=== PATIENT | male | born 1965 | race Caucasian/White ===

== ENCOUNTER 2024-03-19 14:24 | Emergency (ER) | payer OTHER ==
[~2024-03-19] VITALS: Ht 177.8 cm; Wt 77.1 kg
[2024-03-19 14:30] VITALS: BP 118/92; PULSE 104; RESP 16; TEMP 97.7; O2SAT 97
--- NOTE | 2024-03-19 14:33 | NUR ---
Patient BIBA to bed 5.
--- NOTE | 2024-03-19 14:49 | NUR ---
58 y/o male biba from streets with c/o abdominal pain x today. Patient reports abdominal pain with vomiting. Patient reports nausea and vomiting. Patient's pain is in the epigastric region. Patient reports takin Tums with minimal relief. Patient denies any sick contacts. Patient reports eating [employer] then symptoms started. Last BM 03/18/24. Patient has a 18G IV to Left Forearm and Fluids running started by [facility]. Patient was also given 4mg of Zofran IV Push. Call light is within reach. Medical History: DM, HTN NKDA
--- NOTE | 2024-03-19 15:14 | NUR ---
Lab at bedside.
[2024-03-19] MEDS: KETOROLAC 30 MG/ML VIAL IVP ONE (15:22)
[2024-03-19 15:26] LABS: BASOPHILS % (AUTO) 0.2 % (0.0-2.0); EOSINOPHILS % (AUTO) 0.2 % (0.0-4.0); HEMATOCRIT 37.1 % (36-52); HEMOGLOBIN 12.5 g/dL (12.0-18.0); LYMPHOCYTES # (AUTO) 0.6 K/uL (2.0-11.5); LYMPHOCYTES % (AUTO) 5.4 % (20.5-51.1); MEAN CORPUSCULAR HEMOGLOBIN 31 pg (27-31); MEAN CORPUSCULAR HGB CONC 34 g/dL (33-37); MEAN CORPUSCULAR VOLUME 90.7 fL (80-94); MONOCYTES # (AUTO) 0.7 K/uL (0.8-1.0); MONOCYTES % (AUTO) 6.5 % (1.7-9.3); NEUTROPHILS # (AUTO) 9.7 K/uL (1.8-7.7); NEUTROPHILS % (AUTO) 87.7 % (42.2-75.2); PLATELET COUNT (AUTO) 213 K/uL (140-450); RED BLOOD CELL COUNT(AUTO) 4.09 MIL/uL (4.20-6.10); RED CELL DISTRIBUTION WIDTH 13.4 % (11.6-13.7); WHITE BLOOD COUNT (AUTO) 11.1 K/uL (4.8-10.8)
[2024-03-19 15:39] LABS: ANION GAP 16.2 (8-16); CALCIUM 9.4 mg/dL (8.5-10.1); CARBON DIOXIDE 23.5 mmol/L (21-32); CREATININE 1.8 mg/dL (0.6-1.3); POTASSIUM 4.7 mmol/L (3.5-5.1)
[2024-03-19 15:42] LABS: ALBUMIN 3.6 g/dL (3.4-5.0); BILIRUBIN,DIRECT 0.4 mg/dL (0.0-0.3); TOTAL BILIRUBIN 2.7 mg/dL (0.0-1.0); TOTAL PROTEIN, SERUM 7.2 g/dL (6.4-8.2)
[2024-03-19 15:49] LABS: FLU A ANTIGEN negative (NEGATIVE); FLU B ANTIGEN negative (NEGATIVE)
[2024-03-19] MEDS: NACL 0.9% 1,000 ML IV ONE (16:50)
--- NOTE | 2024-03-19 17:34 | NUR ---
Patient ambulated to restroom with steady gait.
[2024-03-19 18:23] LABS: APPEARANCE,URINE CLEAR (CLEAR); BILIRUBIN,URINE NEGATIVE (NEGATIVE); BLOOD, URINE NEGATIVE (NEGATIVE); COLOR,URINE YELLOW (YELLOW); LEUKOCYTE ESTERASE ,URINE NEGATIVE (NEGATIVE); NITRITE, URINE NEGATIVE (NEGATIVE); PROTEIN,URINE 2+ (NEGATIVE); UGLUCOSE 1+ (NEGATIVE); UROBILINOGEN,URINE 0.2 EU/dL (0.2 - 1)
--- NOTE | 2024-03-19 18:29 | NUR ---
Dr. Tai re-evaluating patient at bedside.
[2024-03-19] MEDS ORDERED: ONDA-188 PO (18:40)
[2024-03-19] MEDS ORDERED: ACET500T99 PO (18:40)
[2024-03-19] MEDS: ONDANSETRON 4 MG/2 ML VIAL IVP ONE (18:44)
[2024-03-19 18:51] LABS: BACTERIA,URINE 2+ /HPF (None Seen); MUCUS,URINE 2+ /LPF (None Seen); RBC,URINE 0-5 /HPF (0-5); SQUAMOUS EPITHELIAL CELL,UR 4-10 (MOD) /LPF (0-3 (FEW)); WBC,URINE 0-5 /HPF (0-5)
[2024-03-19 18:52] LABS: FINE GRANULAR CASTS,URINE 0-10 /LPF (None Seen)
--- NOTE | 2024-03-19 19:08 | NUR ---
IV removed, catheter intact and site benign. Applied folded 4x4 gauze and tape to stop bleeding.
[2024-03-19 19:10] VITALS: BP 163/86; PULSE 104; RESP 11; O2SAT 95
--- NOTE | 2024-03-19 19:10 | NUR ---
Patient discharged with v/s stable. Written and verbal after care instructions given. Patient alert, oriented and verbalized understanding of instructions. Ambulatory with steady gait. All questions addressed prior to discharge. ID band removed. Patient advised to follow up with PMD. Rx of ACETAMINOPHEN AND ZOFRAN given. Opportunity to ask questions provided and answered.
--- NOTE | 2024-03-19 19:24 | NUR ---
Chart checked and completed. The patient's care was reviewed and supervised by LAURIE ROBLEDO RN.
== END 2024-03-19 19:10 | disposition home or self-care (01) ==
LOC: MED 14:24
DX: A08.4 Viral intestinal infection, unspecified (principal); N17.9 Acute kidney failure, unspecified; E86.0 Dehydration; Z20.822 Contact with and (suspected) exposure to COVID-19; R00.0 Tachycardia, unspecified; Z79.899 Other long term (current) drug therapy; E11.9 Type 2 diabetes mellitus without complications
CPT/HCPCS: 36415; 80048; 80076; 81001; 83690; 85025; 87426; 87804; 96361; 96374; 96375; 99284; J1885; J2405; J7030

== ENCOUNTER 2024-03-31 16:37 | Emergency (ER) | payer OTHER ==
[~2024-03-31] VITALS: Ht 177.8 cm; Wt 77.1 kg
[~2024-03-31 16:37] MED LIST: ACET500T99 PO; ONDA-188 PO
[2024-03-31 16:49] VITALS: BP 144/83; PULSE 102; RESP 22; TEMP 97.8; O2SAT 100
[2024-03-31 17:17] VITALS: O2SAT 99
[2024-03-31 17:27] LABS: BASOPHILS % (AUTO) 0.3 % (0.0-2.0); EOSINOPHILS % (AUTO) 0.1 % (0.0-4.0); HEMOGLOBIN 12.8 g/dL (12.0-18.0); LYMPHOCYTES % (AUTO) 6.2 % (20.5-51.1); MEAN CORPUSCULAR HEMOGLOBIN 30 pg (27-31); MEAN CORPUSCULAR HGB CONC 34 g/dL (33-37); MEAN CORPUSCULAR VOLUME 89.7 fL (80-94); MONOCYTES # (AUTO) 0.4 K/uL (0.8-1.0); MONOCYTES % (AUTO) 2.6 % (1.7-9.3); NEUTROPHILS # (AUTO) 14.1 K/uL (1.8-7.7); NEUTROPHILS % (AUTO) 90.8 % (42.2-75.2); PLATELET COUNT (AUTO) 275 K/uL (140-450); RED BLOOD CELL COUNT(AUTO) 4.24 MIL/uL (4.20-6.10); RED CELL DISTRIBUTION WIDTH 13.5 % (11.6-13.7); WHITE BLOOD COUNT (AUTO) 15.5 K/uL (4.8-10.8)
[2024-03-31] MEDS: NACL 0.9% 1,000 ML IV ONE (17:29)
[2024-03-31] MEDS: FAMOTIDINE 20 MG/2 ML VIAL IVP ONE (17:33)
[2024-03-31] MEDS: ONDANSETRON 4 MG/2 ML VIAL IVP ONE (17:33)
[2024-03-31 17:45] LABS: ANION GAP 18.5 (8-16); CALCIUM 9.8 mg/dL (8.5-10.1); CARBON DIOXIDE 23.9 mmol/L (21-32); CREATININE 1.5 mg/dL (0.6-1.3); POTASSIUM 4.4 mmol/L (3.5-5.1)
[2024-03-31 17:46] VITALS: BP 179/75; PULSE 101; RESP 22; TEMP 97.8
[2024-03-31 17:58] LABS: ALANINE AMINOTRANSFERASE 21 U/L (12-78); ALBUMIN 4.2 g/dL (3.4-5.0); ALKALINE PHOSPHATASE 77 U/L (50-136); ASPARTATE AMINOTRANSFERASE 13 U/L (15-37); BILIRUBIN,DIRECT 0.3 mg/dL (0.0-0.3); LIPASE 66 U/L (16-77); TOTAL BILIRUBIN 2.3 mg/dL (0.0-1.0); TOTAL PROTEIN, SERUM 8.1 g/dL (6.4-8.2)
[2024-03-31 19:21] VITALS: O2SAT 99
[2024-03-31] MEDS: METOCLOPRAMIDE 10 MG/2 ML INJ VIAL IVP ONE (19:50)
[2024-03-31] MEDS ORDERED: FAMO-90 PO (22:00)
[2024-03-31] MEDS ORDERED: ONDA-188 SL (22:00)
== END 2024-03-31 22:20 | disposition home or self-care (01) ==
LOC: MED 16:37
DX: K29.70 Gastritis, unspecified, without bleeding (principal); E11.9 Type 2 diabetes mellitus without complications; I10 Essential (primary) hypertension; Z79.899 Other long term (current) drug therapy
CPT/HCPCS: 36415; 71045; 74177; 80048; 80076; 82948; 83690; 84484; 85025; 93005; 96361; 96374; 96375; 99285; J2405; J2765; J3490; J7030; Q0092; Q9967